=== PATIENT | female | born 1950 | race Hispanic/Latino ===

== ENCOUNTER 2017-07-17 14:40 | Emergency (ER) | payer MEDICARE ==
[~2017-07-17 14:40] MED LIST: ISOVUE-370 76%-LOCM 1 ML ONE
[2017-07-17 15:01] LABS: #Eosinphils 0.1 thou/uL (0.0-0.7); #Lymphocytes 1.7 thou/uL (1.20-3.40); #Monocytes 0.5 thou/uL (0.11-0.59); #Neutrophils 4.3 thou/uL (1.40-6.50); %Basophils 0.6 % (0.0-1.0); %Eosinophils 1.1 % (0.0-10.0); %Lymphocytes 25.2 % (21.0-51.0); %Monocytes 7.9 % (0.0-10.0); %Neutrophils 65.2 % (42.0-75.0); Hemoglobin 12.9 g/dL (12.0-16.0); Mean Corpuscular HGB CONC 33.9 g/dL (32.0-36.0); Mean Corpuscular Hemoglobin 31.3 pg (27.0-31.0); Mean Corpuscular Volume 92.1 fl (81.0-99.0); Mean Platelet Volume 6.4 fL (7.4-10.4); Platelet Count 303 thou/uL (130-400); Red Blood Cell (RBC) Count 4.12 mill/uL (4.20-5.40); White Blood Cell (WBC) Count 6.6 thou/uL (4.8-10.8)
[2017-07-17 15:22] LABS: Bilirubin Negative (Negative); Blood, Urine Negative (Negative); Clarity CLOUDY (Clear); Glucose, Urine (Dipstick) Negative (Negative); Leukocyte Trace (Negative); Nitrite Negative (Negative); Protein, Urine (Dipstick) Negative (Neg-Trace); Specific Gravity, Urine 1.022 (1.002-1.036); Urobilinogen 0.2 mg/dL (0.2-1.0); pH, Urine 6.5 (5.0-9.0)
[2017-07-17 15:23] LABS: Bacteria/HPF Rare-Few HPF (None Seen); Hyaline Casts/LPF 0-3 HYALINE CAST LPF (0-3 Hyaline); Pathc Cast-AUWi Flag 1.01 (0-2.49); WBC/HPF 0-3 HPF (0-3)
[2017-07-17 15:24] LABS: ALT (SGPT) 20 U/L (8-55); AST (SGOT) 22 U/L (5-34); Albumin 4.4 g/dL (3.4-4.8); Alkaline Phosphatase 109 U/L (40-150); Anion Gap 12 mmol/L (10-20); BUN (Urea Nitrogen) 15 mg/dL (9.8-20.1); Bilirubin, Total 0.5 mg/dL (0.2-1.2); Calc. Creatinine Clearance 0 mL/min (70-130); Calcium 9.6 mg/dL (7.8-10.44); Carbon Dioxide 27 mmol/L (23-31); Chloride 99 mmol/L (98-107); Estimated GFR-MDRD 56; Globulin 3.2 g/dL (2.4-3.5); Glucose 115 mg/dL (80-115); Lipase 31 U/L (8-78); Potassium 4.3 mmol/L (3.5-5.1); Protein, Total 7.6 g/dL (6.0-8.3); Sodium 134 mmol/L (136-145)
--- NOTE | 2017-07-17 16:34 | ULT ---
GALLBLADDER RIGHT UPPER QUADRANT ULTRASOUND: History: Right upper quadrant pain. Comparison: None. Technique: Multiplanar grayscale and spectral analysis of the right upper quadrant abdomen was perfor med. FINDINGS: Hepatic echotexture is mildly increased. There is cholelithiasis. Gallbladder wall thickness is elida l. No pericholecystic fluid. Common bile duct is upper limits of normal measuring just under 6 mm. Portal vein is patent with antegrade flow and normal phasicity. Pancreas is poorly seen. Liver measur es 12.6 cm in length. Right kidney measures 9.4 x 4.3 x 5.5 cm. Sonographic terrell's sign is negative. IMPRESSION: Cholelithiasis without cholecystitis. POS: [facility]
[2017-07-17 16:46] LABS: Troponin I Less than 0.010 ng/mL (< 0.028)
[2017-07-17 16:50] LABS: CKMB 8.5 ng/mL (0-6.6)
[2017-07-17] MEDS ORDERED: Fentanyl 100 MCG/2 ML VIAL ONE (16:57)
[2017-07-17] MEDS ORDERED: Dicyclomine 20 MG TAB ONE (17:34)
--- NOTE | 2017-07-17 18:45 | CT ---
CT ABDOMEN AND PELVIS WITH CONTRAST: History: Abdominal pain. Comparison: None. FINDINGS: Lung bases are clear. No pericardiac effusion. Gallbladder is normal. The spleen, pancreas, and adrenal glands are all normal. The aortoiliac contour is normal. No free intraperitoneal gas or fluid. The appendix is visualized and is normal. There is no hydronephrosis. Adrenal glands are normal. Prior hysterectomy. Small volume scar in the prevascular space. Posterior spinal fusion hardware of the lumbosacral spine, L5 to S1. Advanced degenerative facet arth ropathy L4-5 and L5-S1. No acute fracture. The right L5 transpedicular screw abuts the superior endpl ate. Mild narrowing of the pubic symphysis. There are moderately advanced degenerative changes of the righ t S1 joint with sclerosis. IMPRESSION: 1. No acute inflammatory process in the abdomen or pelvis. 2. Grade I L5 over S1 anterolisthesis. 3. Normal appendix. POS: [facility]
== END 2017-07-17 18:33 | disposition home or self-care (01) ==
LOC: ERS 14:40
DX: K80.20 Calculus of gallbladder without cholecystitis without obstruction (principal); I10 Essential (primary) hypertension; R73.03 Prediabetes; F32.9 Major depressive disorder, single episode, unspecified; Z79.899 Other long term (current) drug therapy; Z79.4 Long term (current) use of insulin
CPT/HCPCS: 36415; 74177; 76705; 80053; 81003; 81015; 82553; 83690; 84484; 85025; 93005; 96361; 96374; J3010

== ENCOUNTER 2017-07-19 15:03 | Outpatient (CLI) | payer MEDICARE ==
[2017-07-19 16:27] LABS: ALT (SGPT) 25 U/L (8-55); AST (SGOT) 25 U/L (5-34); Albumin 4.6 g/dL (3.4-4.8); Alkaline Phosphatase 111 U/L (40-150); Bilirubin, Direct 0.2 mg/dL (0.1-0.3); Bilirubin, Total 0.4 mg/dL (0.2-1.2); Protein, Total 7.6 g/dL (6.0-8.3)
== END 2017-07-19 15:04 | disposition home or self-care (01) ==
LOC: LABBT 15:03
PROVIDERS: ATTEND Surgery
DX: Z01.812 Encounter for preprocedural laboratory examination (principal); K81.0 Acute cholecystitis
CPT/HCPCS: 80076

== ENCOUNTER 2017-07-21 06:00 | Day surgery (SDC) | payer MEDICARE ==
[2017-07-19 15:34] VITALS: BMI 28.3
[2017-07-21] MEDS ORDERED: cefOXitin 2 GM VIAL ONE (06:23)
[2017-07-21] MEDS ORDERED: Sodium Chloride 0.9% 100 ML ONE (06:24)
[2017-07-21] MEDS ORDERED: Bupivacaine/Epinephrine 0.25% 30 ML VIAL ONE (08:18)
[2017-07-21] MEDS ORDERED: Fentanyl 250 MCG/5 ML VIAL ONE (08:25)
[2017-07-21] MEDS ORDERED: Fentanyl 100 MCG/2 ML VIAL ONE (09:32)
[2017-07-21] MEDS ORDERED: HYDROcodone/Acetaminophen 5/325 mg Tablet ONE (10:35)
--- NOTE | 2017-07-21 10:47 | OP ---
DATE OF PROCEDURE: 07/21/2017 PREOPERATIVE DIAGNOSIS: Acute cholecystitis. POSTOPERATIVE DIAGNOSIS: Acute cholecystitis. PROCEDURE: Laparoscopic cholecystectomy. SURGEON: Vinayak Unger M.D. ANESTHESIA: General. ESTIMATED BLOOD LOSS: Minimal. COMPLICATIONS: None. SPECIMEN: Gallbladder. PROCEDURE IN DETAIL: The patient was taken to the Operating Room and laid supine on the Operating Hanny m table. After general anesthetic was obtained, the abdomen was prepped and draped in a sterile fashi on. A curved incision was made below the umbilicus. Cautery was used to dissect down to the umbilical fascia. Umbilical fascia was incised and held up using a Christina. The abdominal cavity was entered us ing a Josette clamp. Holding stitch of Vicryl was placed on each side of the fascia. Adamson trocar was placed. High-flow pneumoperitoneum was obtained. An upper midline 5-mm port and two right upper quadr ant 5-mm ports were placed under direct camera visualization. The gallbladder was retracted from the gallbladder fossa. The peritoneum of the gallbladder was opened anteriorly and posteriorly. The criti agineszka view triangle was seen showing only the cystic duct and cystic artery branching from medial to la teral. There were no other branching structures. Two clips were placed proximally on the cystic duct and one laterally. It was cut using laparoscopic scissors. The cystic artery was taken in the same wa y. Electrocautery was then used to dissect the gallbladder out of the gallbladder fossa. The gallblad rene was placed in an Endo catch bag and brought out through the Adamson. There was no bleeding or bile in the liver bed. The cystic duct stump and cystic artery stump were intact without evidence of extr avasation or bleeding. All port sites were infiltrated using local anesthesia. All ports were removed under camera visualization. Pneumoperitoneum was let down. The Vicryl was used to close the fascial defect below the umbilicus. All incisions were irrigated and closed using 4-0 Monocryl and Dermabond. The patient was en route to Recovery in stable condition. All instrument counts, needle counts and l ap counts were correct.
[2017-07-21] MEDS ORDERED: PROPOFOL 200 MG/20 ML VIAL ONE (13:19)
[2017-07-21] MEDS ORDERED: Ondansetron HCl/PF 4 MG/2 ML Vial ONE (13:19)
[2017-07-21] MEDS ORDERED: Glycopyrrolate 0.2 MG/ML 5 ML SYRINGE ONE (13:19)
[2017-07-21] MEDS ORDERED: Dexamethasone 20 MG/5 ML VIAL ONE (13:19)
--- NOTE | 2017-07-22 07:01 | OP ---
DATE OF PROCEDURE: 07/21/2017 PREOPERATIVE DIAGNOSIS: Chronic cholecystitis. POSTOPERATIVE DIAGNOSIS: Chronic cholecystitis. PROCEDURE: Laparoscopic cholecystectomy. SURGEON: Vinayak Unger M.D. ANESTHESIA: General. ESTIMATED BLOOD LOSS: Minimal. COMPLICATIONS: None. SPECIMEN: Gallbladder. FINDINGS: Acute on chronic cholecystitis. PROCEDURE IN DETAIL: The patient was taken to the Operating Room and laid supine on the Operating Hanny m table. After general anesthetic was obtained, the abdomen was prepped and draped in a sterile fashi on. A curved incision was made below the umbilicus. Cautery was used to dissect down to the umbilical fascia. Umbilical fascia was incised and held up using a Christina. The abdominal cavity was entered us ing a Josette clamp. Holding stitch of Vicryl was placed on each side of the fascia. Adamson trocar was placed. High-flow pneumoperitoneum was obtained. An upper midline 5-mm port and two right upper quadr ant 5-mm ports were placed under direct camera visualization. The gallbladder was retracted from the gallbladder fossa. The peritoneum of the gallbladder was opened anteriorly and posteriorly. The criti agnieszka view triangle was seen showing only the cystic duct and cystic artery branching from medial to la teral. There were no other branching structures. Two clips were placed proximally on the cystic duct and one laterally. It was cut using laparoscopic scissors. The cystic artery was taken in the same wa y. Electrocautery was then used to dissect the gallbladder out of the gallbladder fossa. The gallblad rene was placed in an Endo catch bag and brought out through the Adamson. There was no bleeding or bile in the liver bed. The cystic duct stump and cystic artery stump were intact without evidence of extr avasation or bleeding. All port sites were infiltrated using local anesthesia. All ports were removed under camera visualization. Pneumoperitoneum was let down. The Vicryl was used to close the fascial defect below the umbilicus. All incisions were irrigated and closed using 4-0 Monocryl and DermaBond. The patient was en route to Recovery in stable condition. All instrument counts, needle counts and l ap counts were correct.
== END 2017-07-21 11:10 | disposition home or self-care (01) ==
LOC: SDC 06:00
PROVIDERS: ATTEND Surgery
PROC: 0FT44ZZ Resection of Gallbladder, Percutaneous Endoscopic Approach (ICD-10-PCS; principal; 2017-07-21)
DX: K80.12 Calculus of gallbladder with acute and chronic cholecystitis without obstruction (principal); Z79.82 Long term (current) use of aspirin; Z79.84 Long term (current) use of oral hypoglycemic drugs; Z79.899 Other long term (current) drug therapy; Z88.5 Allergy status to narcotic agent; Z88.8 Allergy status to other drugs, medicaments and biological substances
CPT/HCPCS: 88304; 96374; J0694; J1100; J2405; J2704; J3010; J7050

== ENCOUNTER 2017-09-13 09:52 | Outpatient (CLI) | payer MEDICARE ==
[~2017-09-13 09:52] MED LIST changes: +Gadobenate Dimeglumine 529 MG/1 ML (20ML VIAL) ONE; -ISOVUE-370 76%-LOCM 1 ML ONE
== END 2017-09-13 09:53 | disposition home or self-care (01) ==
LOC: SCSMRI 09:52
PROVIDERS: ATTEND Family Medicine
DX: M51.17 Intervertebral disc disorders with radiculopathy, lumbosacral region (principal); Z01.812 Encounter for preprocedural laboratory examination; M48.061 Spinal stenosis, lumbar region without neurogenic claudication; M43.17 Spondylolisthesis, lumbosacral region; M99.83 Other biomechanical lesions of lumbar region
CPT/HCPCS: 72158; 82565; A9579

== ENCOUNTER 2018-04-14 18:35 | Emergency (ER) | payer MEDICARE ==
[~2018-04-14 18:35] MED LIST changes: -Gadobenate Dimeglumine 529 MG/1 ML (20ML VIAL) ONE; +ISOVUE-370 76%-LOCM 1 ML ONE
--- NOTE | 2018-04-14 20:00 | RAD ---
CHEST ONE VIEW: 04/14/18 INDICATION: Fever, bodyaches and vomiting. COMPARISON: Prior exam dated 07/24/10. FINDINGS: Lungs are clear. Heart size is normal. There is thoracolumbar scoliosis. No definite acute osseous ab normality is evident. IMPRESSION: No acute cardiopulmonary abnormality. POS: [facility]
[2018-04-14] MEDS ORDERED: Acetaminophen 500 MG TAB ONE (20:03)
[2018-04-14] MEDS ORDERED: Ondansetron PF 4 MG/2 ML Vial ONE (20:03)
[2018-04-14 20:13] LABS: #Basophils 0.1 thou/uL (0.0-0.2); #Eosinphils 0.1 thou/uL (0.0-0.7); #Lymphocytes 2.1 thou/uL (1.20-3.40); #Monocytes 0.5 thou/uL (0.11-0.59); #Neutrophils 4.4 thou/uL (1.40-6.50); %Basophils 0.9 % (0.0-1.0); %Lymphocytes 29.2 % (21.0-51.0); %Monocytes 6.5 % (0.0-10.0); %Neutrophils 62.5 % (42.0-75.0); Hemoglobin 13.7 g/dL (12.0-16.0); Mean Corpuscular HGB CONC 33.1 g/dL (32.0-36.0); Mean Corpuscular Volume 93.7 fL (78.0-98.0); Mean Platelet Volume 7.1 fL (7.4-10.4); Platelet Count 289 thou/uL (130-400); RBC Distribution Width 11.4 % (11.5-14.5); Red Blood Cell (RBC) Count 4.43 mill/uL (4.20-5.40); White Blood Cell (WBC) Count 7.1 thou/uL (4.8-10.8)
[2018-04-14 20:31] LABS: ALT (SGPT) 29 U/L (8-55); AST (SGOT) 29 U/L (5-34); Albumin 5.1 g/dL (3.4-4.8); Alkaline Phosphatase 98 U/L (40-150); Anion Gap 15 mmol/L (10-20); BUN (Urea Nitrogen) 13 mg/dL (9.8-20.1); Bilirubin, Total 0.6 mg/dL (0.2-1.2); Calc. Creatinine Clearance 0 mL/min (70-130); Calcium 10.3 mg/dL (7.8-10.44); Carbon Dioxide 28 mmol/L (23-31); Chloride 96 mmol/L (98-107); Estimated GFR-MDRD 80; Globulin 3.3 g/dL (2.4-3.5); Glucose 95 mg/dL (80-115); Lipase 25 U/L (8-78); Protein, Total 8.4 g/dL (6.0-8.3); Sodium 136 mmol/L (136-145)
[2018-04-14] MEDS ORDERED: Potassium Chloride 20 MEQ TAB ONE (21:57)
[2018-04-14 22:04] LABS: Bilirubin Negative (Negative); Blood, Urine Negative (Negative); Clarity CLEAR (Clear); Glucose, Urine (Dipstick) Negative (Negative); Leukocyte Trace (Negative); Nitrite Negative (Negative); Protein, Urine (Dipstick) Negative (Neg-Trace); Specific Gravity, Urine 1.011 (1.002-1.036); Urobilinogen 0.2 mg/dL (0.2-1.0)
[2018-04-14 22:05] LABS: Bacteria/HPF 1+ HPF (None Seen); Hyaline Casts/LPF 4-6 HYALINE CAST LPF (0-3 Hyaline); Pathc Cast-AUWi Flag 1.22 (0-2.49); WBC/HPF 0-3 HPF (0-3)
[2018-04-14 22:06] LABS: RBC/HPF 0-3 HPF (0-3)
--- NOTE | 2018-04-14 22:22 | CT ---
CT OF THE ABDOMEN AND PELVIS WITH IV CONTRAST 04/14/18 INDICATION: History of not feeling well today, bloating and vomiting. COMPARISON: Prior CT of the abdomen and pelvis dated 07/17/17. FINDINGS: Lung bases are clear. There is focal fatty infiltration near the falciform ligament. Gallbladder is surgically absent. Panc reas, adrenal glands, spleen, and kidneys appear within normal limits. No free fluid is evident. There is a normal appendix in the right lower quadrant. There is a mild tyrone unt of retained stool within the colon. The bladder, rectum, and perirectal soft tissues are within n ormal limits. Spinal instrumentation of the lower lumbar spine with scattered degenerative change stable. IMPRESSION: No acute abnormality. POS: [facility]
== END 2018-04-14 22:41 | disposition home or self-care (01) ==
LOC: ERS 18:35
DX: R55 Syncope and collapse (principal); R11.2 Nausea with vomiting, unspecified; E11.9 Type 2 diabetes mellitus without complications; E78.5 Hyperlipidemia, unspecified; I10 Essential (primary) hypertension; F32.9 Major depressive disorder, single episode, unspecified; Z79.899 Other long term (current) drug therapy; Z79.84 Long term (current) use of oral hypoglycemic drugs
CPT/HCPCS: 71045; 74177; 80053; 81003; 81015; 83690; 84484; 85025; 87804; 93005; 96361; 96374; J2405; Q9966

== ENCOUNTER 2018-06-29 12:54 | Outpatient (CLI) | payer MEDICARE ==
--- NOTE | 2018-06-29 13:37 | MMO ---
Bilateral MAMMO Bilat Screen [facility]. CLINICAL HISTORY: Patient is 68 years old and is seen for screening. The patient has no family history of breast cancer. The patient has no personal history of cancer. VIEWS: The views performed were: bilateral craniocaudal with tomosynthesis and bilateral mediolateral oblique with tomosynthesis. FILMS COMPARED: The present examination has been compared to prior imaging studies performed at [facility] on 11/09/2006, 03/26/2008, 01/26/2010 and 05/03/2013. MAMMOGRAM FINDINGS: There are scattered fibroglandular densities. There are no suspicious masses, suspicious calcifications, or new areas of architectural distortion. IMPRESSION: THERE IS NO MAMMOGRAPHIC EVIDENCE OF MALIGNANCY. A ROUTINE FOLLOW-UP MAMMOGRAM IN 1 YEAR IS RECOMMENDED. THE RESULTS OF THIS EXAM WERE SENT TO THE PATIENT. ACR BI-RADS Category 1 - Negative MAMMOGRAPHY NOTE: 1. A negative mammogram report should not delay a biopsy if a dominant of clinically suspicious mass is present. 2. Approximately 10% to 15% of breast cancers are not detected by mammography. 3. Adenosis and dense breasts may obscure an underlying neoplasm.
== END 2018-06-29 12:55 | disposition home or self-care (01) ==
LOC: BICMAMMO 12:54
PROVIDERS: ATTEND Family Medicine
DX: Z12.31 Encounter for screening mammogram for malignant neoplasm of breast (principal)
CPT/HCPCS: 77063; 77067

== ENCOUNTER 2022-12-10 10:28 | Outpatient (CLI) | payer OTHER | END 2022-12-10 10:29 | disposition home or self-care (01) | LOC: MRI 10:28 | PROVIDERS: ATTEND Psychiatry & Neurology Neurology | DX: R41.3 Other amnesia (principal); I67.89 Other cerebrovascular disease; H74.8X3 Other specified disorders of middle ear and mastoid, bilateral | CPT/HCPCS: 70551 ==